=== PATIENT | male | born 1955 | race Two or more races ===

== ENCOUNTER 2016-03-05 14:25 | Emergency (ER) | payer OTHER ==
[~2016-03-05] VITALS: Ht 172.7 cm; Wt 94.3 kg
[2016-03-05 14:45] VITALS: BP 116/65
[2016-03-05 15:52] LABS: Basophils # (auto) 0 uL; Basophils % (auto) 0.4 % (0.0-2.0); DEFINITIVE VIEW TRANSMISSION; Eosinophils # (auto) 0.4 uL; Eosinophils % (auto) 3.2 % (0.0-7.0); Hemoglobin 10.8 g/dL (13.5-17.5); Mean Corpuscular Hemoglobin 29.8 pg (28.0-32.0); Mean Corpuscular Hgb Conc. 32.7 g/dL (32.0-36.0); Mean Corpuscular Volume 90.9 fL (80.0-100.0); Monocytes # (auto) 1.2 uL; Monocytes % (auto) 9.4 % (0.0-12.0); Platelet Count (auto) 120 10^3/uL (140-450); White Blood Cell 12.7 10^3/uL (4.4-10.8)
[2016-03-05 16:17] LABS: Albumin 3.2 g/dL (3.4-5.0); BUN/Creatinine Ratio 33.8; Bilirubin, Total 4.9 mg/dL (0.2-1.0); Calcium 8.4 mg/dL (8.5-10.1); Potassium 3.9 mmol/L (3.5-5.1); Total Protein 6.9 g/dL (6.4-8.2)
[2016-03-05 17:10] LABS: Anisocytosis Slight; Burr Cells FEW; Ovalocytes FEW; Platelet Estimate Decreased
== END 2016-03-05 20:59 | disposition left against medical advice (07) ==
LOC: ER 15:08
DX: R10.9 Unspecified abdominal pain (principal); R19.00 Intra-abdominal and pelvic swelling, mass and lump, unspecified site; Z53.21 Procedure and treatment not carried out due to patient leaving prior to being seen by health care provider
CPT/HCPCS: 36415; 71020; 80053; 84484; 85025